=== PATIENT | female | born 1955 | race Caucasian/White ===

== ENCOUNTER → 2019-09-24 | Outpatient (CLI) | payer MEDICARE, BC ==
[~2019-09-24] MED LIST: DENOSUMAB 60 MG/ML 1 ML SYRINGE SQ NR
[2019-09-24 08:50] VITALS: BP 184/79; PULSE 80; RESP 16; TEMP 97.7
== END | disposition home or self-care (01) ==
LOC: PROCWHC3 08:30
PROVIDERS: ATTEND Internal Medicine
DX: M80.00XA Age-related osteoporosis with current pathological fracture, unspecified site, initial encounter for fracture (principal)
CPT/HCPCS: 96372; J0897

== ENCOUNTER → 2020-03-27 | Outpatient (CLI) | payer MEDICARE, BC ==
[2020-03-27 11:26] VITALS: BP 179/88; PULSE 69; RESP 16; TEMP 98.1
== END | disposition home or self-care (01) ==
LOC: PROCWHC3 10:31
PROVIDERS: ATTEND Internal Medicine
DX: M80.00XA Age-related osteoporosis with current pathological fracture, unspecified site, initial encounter for fracture (principal)
CPT/HCPCS: 96372; J0897

== ENCOUNTER → 2020-10-16 | Outpatient (CLI) | payer MEDICARE, BC ==
[2020-10-16 09:19] VITALS: BP 180/86; PULSE 69; RESP 16; TEMP 98.1
== END ==
LOC: PROCWHC3 09:00
PROVIDERS: ATTEND Internal Medicine
DX: M80.00XA Age-related osteoporosis with current pathological fracture, unspecified site, initial encounter for fracture (principal)
CPT/HCPCS: 96372; J0897

== ENCOUNTER → 2021-04-23 | Outpatient (CLI) | payer MEDICARE, BC ==
[~2021-04-23] MED LIST changes: -DENOSUMAB 60 MG/ML 1 ML SYRINGE SQ NR; +DENOSUMAB 60 MG/ML 1 ML SYRINGE SQ ONE
[2021-04-23 10:46] VITALS: BP 156/91; PULSE 74; RESP 16; TEMP 97.8
== END | disposition home or self-care (01) ==
LOC: PROCWHC3 10:36
PROVIDERS: ATTEND Family Medicine
DX: M81.0 Age-related osteoporosis without current pathological fracture (principal)
CPT/HCPCS: 96372; J0897

== ENCOUNTER → 2021-11-12 | Outpatient (CLI) | payer MEDICARE, BC ==
[2021-11-12 09:28] VITALS: BP 171/85; PULSE 72; RESP 18; TEMP 98
== END | disposition home or self-care (01) ==
LOC: PROCWHC3 09:10
PROVIDERS: ATTEND Family Medicine
DX: M81.0 Age-related osteoporosis without current pathological fracture (principal)
CPT/HCPCS: 96372; J0897

== ENCOUNTER → 2022-05-17 | Outpatient (CLI) | payer MEDICARE, BC ==
[~2022-05-17] MED LIST changes: +DENOSUMAB 60 MG/ML 1 ML SYRINGE SQ NR; -DENOSUMAB 60 MG/ML 1 ML SYRINGE SQ ONE
[2022-05-17 09:24] VITALS: BP 161/87; PULSE 80; RESP 16; TEMP 97.8
== END ==
LOC: PROCWHC3 09:11
PROVIDERS: ATTEND Physician Assistant
DX: M80.00XA Age-related osteoporosis with current pathological fracture, unspecified site, initial encounter for fracture (principal); Z88.6 Allergy status to analgesic agent
CPT/HCPCS: 96372; J0897

== ENCOUNTER → 2023-01-01 | Outpatient (CLI) | payer MEDICARE, BC ==
[2023-01-01 14:05] VITALS: BP 157/83; PULSE 75; RESP 16; TEMP 98.3
== END ==
LOC: PROCWHC3 13:41
PROVIDERS: ATTEND Physician Assistant
DX: M81.0 Age-related osteoporosis without current pathological fracture (principal)
CPT/HCPCS: 96372; J0897

== ENCOUNTER → 2023-08-20 | Outpatient (CLI) | payer MEDICARE, BC ==
[2023-08-20] MEDS: DENOSUMAB 60 MG/ML 1 ML SYRINGE SQ NR (13:15)
[2023-08-20 13:25] VITALS: BP 155/83; PULSE 86; RESP 16; TEMP 97.8
== END ==
LOC: PROCWHC3 12:34
PROVIDERS: ATTEND Physician Assistant
DX: M80.00XA Age-related osteoporosis with current pathological fracture, unspecified site, initial encounter for fracture (principal)
CPT/HCPCS: 96372; J0897

== ENCOUNTER 2024-01-13 11:25 | Day surgery (SDC) | payer MEDICARE, BC ==
[2024-01-13] MEDS ORDERED: LACTATED RINGERS 1,000 ML BAG ONE (13:00)
[2024-01-13] MEDS ORDERED: PROPOFOL 10 MG/ML 20 ML VIAL IV ONE (13:46)
--- NOTE | 2024-02-06 07:04 | P.PCN ---
Date of Procedure: 01/13/24 Procedure(s) Performed: This is an addendum to the procedure that was performed on 01/13/2024. Procedure performed colonoscopy Procedure: The long pause colonoscopy was inserted the rectum and gradually advanced into the cecum. Careful examination was performed and the scope was gradually being withdrawn.
== END 2024-01-13 14:40 ==
LOC: ORWHC2ENDO 11:25
PROVIDERS: ATTEND Internal Medicine Gastroenterology
DX: Z12.11 Encounter for screening for malignant neoplasm of colon (principal); I10 Essential (primary) hypertension; Z79.899 Other long term (current) drug therapy; Z86.010 Personal history of colon polyps; Z98.890 Other specified postprocedural states

== ENCOUNTER → 2024-04-07 | Outpatient (CLI) | payer MEDICARE, BC ==
--- NOTE | 2024-04-07 17:44 | US ---
EXAMINATION TYPE: US thyroid st tissue head/neck DATE OF EXAM: 04/07/2024 COMPARISON: NONE CLINICAL INDICATION: Female, 68 years old with history of R22.1 LOCALIZED SWELLING, MASS AND LUMP, NE CK; Palpable Left x few years per patient at anterior superior neck TECHNIQUE: Sonographic images take of areas palpable. FINDINGS: Patients area of concern scanned. No prominent masses or lesions identified at time of sc an. Contralateral images taken. IMPRESSION: No prominent masses definitively visualized in the area of palpable abnormality. Consider CT neck wit h IV contrast with palpable marker placement for further evaluation. [facility], , 04/07/2024 5:41 PM
== END | disposition home or self-care (01) ==
LOC: RADUSWWP 15:02
PROVIDERS: ATTEND Family Medicine
DX: R22.1 Localized swelling, mass and lump, neck (principal)
CPT/HCPCS: 76536

== ENCOUNTER → 2024-04-12 | Outpatient (CLI) | payer MEDICARE, BC ==
[2024-04-12 15:21] LABS: African American GFR (CKD) 52 (>60 ml/min/1.73 sqM); Blood Urea Nitrogen 38 mg/dL (7-17); Non-African American GFR(CKD) 45 (>60 ml/min/1.73 sqM)
--- NOTE | 2024-04-12 18:36 | CT ---
EXAMINATION TYPE: CT soft tissue neck w con DATE OF EXAM: 04/12/2024 5:22 PM COMPARISON: None. CLINICAL INDICATION: Female, 68 years old with history of R22.1 SWELLING MASS LUMP; PHH, Swelling mas s lump on left side of neck. TECHNIQUE: Standard enhanced CT of the neck. Axial sections with coronal and sagittal reformats were obtained. Contrast used:80 mL of Isovue 300 with IV Contrast, (None if empty) Oral contrast used: (None if empty) CT DLP: 274 mGycm, Automated exposure control for dose reduction was used. FINDINGS: Brain: Visualized portions are grossly unremarkable. Orbits: Unremarkable Sinuses: Grossly unremarkable. Spaces of the neck: Clear and symmetric. Palpable marker correlates with patient's trachea. No suspic ious masses or lymphadenopathy. Musculoskeletal: No acute osseous pathology. Lymph nodes: Multiple nonenlarged lymph nodes are seen along both anterior chains of the neck. Vascular structures: Patent with atherosclerotic plaque of the internal carotid arteries at the bifur cation. Thoracic Inlet/airway: Airway is patent. The lung apices are clear. Soft tissues/Thyroid: Thyroid and remainder of the soft tissues are unremarkable. Other: none. IMPRESSION Palpable marker correlates with patient's trachea. No suspicious masses or lymphadenopathy. [facility], , 04/12/2024 6:34 PM
== END | disposition home or self-care (01) ==
LOC: RADCTMAIN 14:26
PROVIDERS: ATTEND Family Medicine
DX: R22.1 Localized swelling, mass and lump, neck (principal)
CPT/HCPCS: 82565; 84520; 70491; 36415; Q9967

== ENCOUNTER → 2024-04-22 | Outpatient (CLI) | payer MEDICARE, BC ==
[2024-04-22 14:27] VITALS: BP 112/78; PULSE 79; RESP 16; TEMP 98.2
[2024-04-22] MEDS: DENOSUMAB 60 MG/ML 1 ML SYRINGE SQ NR (14:27)
== END ==
LOC: PROCWHC3 14:13
PROVIDERS: ATTEND Physician Assistant
DX: M81.0 Age-related osteoporosis without current pathological fracture (principal)
CPT/HCPCS: 96372; J0897

== ENCOUNTER → 2024-10-27 | Outpatient (CLI) | payer MEDICARE, BC ==
[2024-10-27 13:04] VITALS: BP 118/77; PULSE 76; RESP 18; TEMP 98.1
[2024-10-27] MEDS: DENOSUMAB 60 MG/ML 1 ML SYRINGE SQ NR (13:10)
== END ==
LOC: PROCWHC3 12:37
PROVIDERS: ATTEND Physician Assistant
DX: M81.0 Age-related osteoporosis without current pathological fracture (principal)
CPT/HCPCS: 96372; J0897